=== PATIENT | male | born 2000 | race Caucasian/White ===

== ENCOUNTER 2022-01-30 19:03 | Emergency (ER) | payer OTHER, SELFPAY ==
[2022-01-30 19:15] VITALS: BP 134/77; PULSE 99; RESP 18; TEMP 36.2; O2SAT 99
--- NOTE | 2022-01-30 19:15 | ED.DENTAL ---
HPI - Dental/Oral General Chief complaint: Dental/Oral Stated complaint: Dental Pain Time Seen by Provider: 01/30/22 19:20 Source: patient Mode of arrival: ambulatory Limitations: no limitations History of Present Illness HPI Narrative: Chuy is a 21-year-old male patient presenting to clinic today with right lower dental pain times 2-3 days. He mother reports that he is scheduled for a dentist appointment on Thursday however they would not see him to give him antibiotics today. Related Data Allergies Allergy/AdvReac Type Severity Reaction Status Date / Time No Known Allergies Allergy Verified 01/30/22 19:20 Review of Systems Review of Systems: Pertinent positives per HPI. Patient denies any fever, chills, rash, headache, visual changes, dizziness, cough, runny nose, sore throat, shortness of breath, chest pain, palpitations, nausea, vomiting, diarrhea, constipation, abdominal pain, or any urinary issues. PMFSH Comments At the time of my signature, I reviewed and agree with the nursing past medical, surgical, social, and family history. There is no relevant family history pertinent to the patient complaint. Exam Narrative: General: Well-developed, well nourished, in no apparent distress Head: Normocephalic, atraumatic Eyes: Pupils equally round and reactive to light bilaterally, EOM intact, sclera and conjunctive clear, no discharge, lids normal Ears: TMs intact and clear, ear canals clear, no drainage, grossly hearing normal. Nose: Nares patent, no discharge, no inflammation, no sinus tenderness. Mouth: Oropharynx without lesions or masses, poor dentition, MMM. swelling and tenderness to the right lower jaw all/gums Neck: Supple, trachea midline, no enlargement of anterior or posterior cervical nodes, no thyroid masses or goiter palpable. Cardio: Regular rate and rhythm, s1 and s2 normal, no murmur appreciated. Resp: Clear to auscultation bilaterally anteriorly and posteriorly, no rhonchi, rales, wheezing or rubs Course Course Emergency Course: Portions of this record may have been created with voice recognition software. Level of Care: Express Care Visit Vital Signs Vital signs: Vital Signs Temperature 36.2 C L 01/30/22 19:15 Pulse Rate 99 01/30/22 19:15 Respiratory Rate 18 01/30/22 19:15 Blood Pressure 134/77 01/30/22 19:15 Pulse Oximetry 99 01/30/22 19:15 Oxygen Delivery Room Air 01/30/22 19:15 Temperature 36.2 C L 01/30/22 19:15 Pulse Rate 99 01/30/22 19:15 Respiratory Rate 18 01/30/22 19:15 Blood Pressure 134/77 01/30/22 19:15 Pulse Oximetry 99 01/30/22 19:15 Oxygen Delivery Room Air 01/30/22 19:15 Vital signs reviewed MDM - Dental/Oral MDM Narrative Medical decision making narrative: at the time of visit patient is resting comfortably on the exam table. Prescription for amoxicillin was sent to the pharmacy. Supportive measures were discussed with the mother the patient voiced understanding of discharge instructions and agreed to the treatment plan. Differential Diagnosis Differential diagnosis: Likely gingival abscess, dental caries, toothache and dental abscess Discharge Plan Discharge Clinical Impression: Dental infection Patient Disposition: Home, Self-Care Condition: Stable Instructions: Antibiotic Form, Toothache (ED) Additional Instructions: may take Tylenol/ Motrin as needed for pain or fever take amoxicillin as prescribed follow-up with the dentist as soon as possible Prescriptions: New amoxicillin 500 mg tablet 500 mg PO Q8H 10 Days Qty: 30 0RF Follow-up/Referrals: PHYSICIAN,PAINTER CHASSIS [Primary Care Provider] - Stand Alone Forms: Work/School Release IP Time of Disposition: 19:20 Quality NIHSS Nursing Documentation ED NIHSS nursing documentation: reviewed/agree
== END 2022-01-30 19:25 | disposition home or self-care (01) ==
PROVIDERS: Emergency Provider Nurse Practitioner Family
DX: K08.89 Other specified disorders of teeth and supporting structures (principal)
CPT/HCPCS: 99213; G0463